=== PATIENT | female | born 1965 | race Caucasian/White ===

== ENCOUNTER 2016-09-18 14:51 | Emergency (ER) | payer SELFPAY ==
[2016-09-18] MEDS ORDERED: CLINDAMYCIN HCL 150 MG CAPSULE PO ONE (15:58)
[2016-09-18] MEDS ORDERED: IBUPROFEN 800 MG TABLET PO ONE (15:58)
[2016-09-18] MEDS ORDERED: ONDANSETRON 4 MG TAB.RAPDIS PO ONE (15:59)
--- NOTE | 2016-09-18 16:01 | ER Document Report ---
ED Medical Screen (RME) - General Chief Complaint: Toothache Stated Complaint: TOOTH PAIN Time seen by provider: 15:57 Mode of Arrival: Ambulatory Information source: Patient Notes: 51-year-old female complaining of dental abscess since yesterday. She does not want any procedure done and she just wants antibiotic and something for pain. There is a palpable abscess adjacent to her left lower decayed bicuspid. I have greeted and performed a rapid initial assessment of this patient. A comprehensive ED assessment, evaluation of the patient, analysis of test results , and completion of the medical decision making process will be conducted by additional ED providers. - Related Data Allergies/Adverse Reactions: Macrolide Antibiotics Allergy (Verified 09/18/16 15:54) morphine Allergy (Verified 09/18/16 15:54) Penicillins Allergy (Verified 09/18/16 15:58) Sulfa (Sulfonamide Antibiotics) Allergy (Verified 09/18/16 15:54) Past Medical History Past Surgical History: Reports: Hx Tubal Ligation - Immunizations Hx Diphtheria, Pertussis, Tetanus Vaccination: No Physical Exam - Vital signs Vitals: Temp Pulse Resp BP Pulse Ox 99.8 F 110 H 18 144/85 H 95 09/18/16 15:17 09/18/16 15:17 09/18/16 15:17 09/18/16 15:17 09/18/16 15:17 Course - Vital Signs Vital signs: Temp Pulse Resp BP Pulse Ox 99.8 F 110 H 18 144/85 H 95 09/18/16 15:17 09/18/16 15:17 09/18/16 15:17 09/18/16 15:17 09/18/16 15:17
[2016-09-18 18:01] VITALS: BP 145/83
--- NOTE | 2016-09-18 18:02 | ER Document Report ---
HPI - HPI Patient complains to provider of: dental infection Onset: Yesterday Onset/Duration: Gradual Quality of pain: Achy Pain Level: 4 Context: Patient complains of dental abscess that started to become painful yesterday. Patient reports subjective fevers at home. Patient reports left lower jaw swelling today. Associated Symptoms: Fever - Subjective, Other - dental pain Exacerbated by: Denies Relieved by: Denies Similar symptoms previously: Yes Recently seen / treated by doctor: No - ROS ROS below otherwise negative: Yes Systems Reviewed and Negative: Yes All other systems reviewed and negative - CONSTITUTIONAL Constitutional: REPORTS: Fever - EENT Notes: Dental infection - NEURO Neurology: DENIES: Headache - GASTROINTESTINAL Gastrointestinal: DENIES: Nausea, Patient vomiting - MUSCULOSKELETAL Musculoskeletal: DENIES: Back Pain, Neck Pain - DERM Skin Color: Normal Skin Problems: None Past Medical History - General Information source: Patient - Social History Smoking Status: Current Every Day Smoker Chew tobacco use (# tins/day): No Frequency of alcohol use: None Drug Abuse: None Occupation: none Lives with: Family Family History: Reviewed & Not Pertinent Patient has suicidal ideation: No Patient has homicidal ideation: No - Medical History Medical History: Negative Renal/ Medical History: Denies: Hx Peritoneal Dialysis Past Surgical History: Reports: Hx Tubal Ligation - Immunizations Hx Diphtheria, Pertussis, Tetanus Vaccination: No Vertical Provider Document - CONSTITUTIONAL Agree With Documented VS: Yes Exam Limitations: No Limitations General Appearance: WD/WN, No Apparent Distress - INFECTION CONTROL TRAVEL OUTSIDE OF THE [place] IN LAST 30 DAYS: No - HEENT HEENT: Atraumatic, Normocephalic. negative: Pharyngeal Exudate, Pharyngeal Tenderness Mouth Diagram: 1 - Dental decay, tenderness, neighbor in gingiva tender and indurated, no fluctuance, no drainable abscess, no trismus, no sublingual or submental swelling - NECK Neck: Normal Inspection, Supple - RESPIRATORY Respiratory: Breath Sounds Normal, No Respiratory Distress O2 Sat by Pulse Oximetry: 95 - MUSCULOSKELETAL/EXTREMETIES Musculoskeletal/Extremeties: MAEW - NEURO Level of Consciousness: Awake, Alert, Appropriate - DERM Integumentary: Warm, Dry, No Rash Course - Vital Signs Vital signs: Temp Pulse Resp BP Pulse Ox 99.8 F 110 H 18 144/85 H 95 09/18/16 15:17 09/18/16 15:17 09/18/16 15:17 09/18/16 15:17 09/18/16 15:17 Discharge - Discharge Clinical Impression: Infected dental caries Condition: Stable Disposition: HOME, SELF-CARE Instructions: Clindamycin ([facility]), Toothache ([facility]), Dental Infection or Abscess ( [facility]), Dentist Additional Instructions: Return immediately for any new or worsening symptoms Followup with your primary care provider, call tomorrow to make a followup appointment Your blood pressure was elevated today, recheck with a primary doctor to have this evaluated in 1-2 days. Follow up with a dental care provider, call for an appointment tomorrow Prescriptions: Clindamycin HCl [Cleocin 300 mg Capsule] 300 mg PO TID #21 capsule Naproxen [Naprosyn 250 Nmg Tablet] 1 tab PO BID #14 tablet Referrals: [facility] [Provider Group] - Follow up tomorrow [facility] [Provider Group] - Follow up tomorrow
== END 2016-09-18 18:15 | disposition home or self-care (01) ==
LOC: ER 14:51
DX: K04.7 Periapical abscess without sinus (principal); K02.9 Dental caries, unspecified; R50.9 Fever, unspecified; F17.200 Nicotine dependence, unspecified, uncomplicated
CPT/HCPCS: 99282; S0119

== ENCOUNTER 2017-11-26 08:47 | Emergency (ER) | payer SELFPAY ==
[2017-11-26 09:14] VITALS: BP 137/73
[2017-11-26] MEDS ORDERED: ASPIRIN 81 MG TABLET, CHEWABLE PO ONE (09:21)
--- NOTE | 2017-11-26 09:23 | ER Document Report ---
ED Medical Screen (RME) - General Chief Complaint: Chest Pain > 30 Stated Complaint: CHEST PAIN Time Seen by Provider: 11/26/17 09:17 Notes: RAPID MEDICAL EVALUATION DISCLOSURE I have seen this patient as part of a Rapid Medical Evaluation and, if applicable, placed any initially appropriate orders. The patient will be seen and fully evaluated, including a full history and physical exam, by a provider ( in Main ED or Fast Track) when a room becomes available. 52-year-old female here with complaints of left-sided chest pain radiating up to the left shoulder, left jaw, left neck ongoing for the past 2 days. She reports that the symptoms have been intermittent. They are worse with her anxiety and with "thinking about the stress in life". Her family made her come in. The patient is rambling and therefore I am unable to ascertain whether she is having diaphoresis lightheadedness nausea vomiting with the chest pain since she does not answer these questions and continues talking about other things. EXAM CTAB RRR TRAVEL OUTSIDE OF THE [place] IN LAST 30 DAYS: No - Related Data Allergies/Adverse Reactions: Macrolide Antibiotics Allergy (Verified 11/26/17 08:48) morphine Allergy (Verified 11/26/17 08:48) Penicillins Allergy (Verified 11/26/17 08:48) Sulfa (Sulfonamide Antibiotics) Allergy (Verified 11/26/17 08:48) mycins Allergy (Uncoded 11/26/17 09:13) Past Medical History - Social History Frequency of alcohol use: None Drug Abuse: None Renal/ Medical History: Denies: Hx Peritoneal Dialysis Past Surgical History: Reports: Hx Tubal Ligation - Immunizations Hx Diphtheria, Pertussis, Tetanus Vaccination: No Physical Exam - Vital signs Vitals: Temp Pulse Resp BP Pulse Ox 98.0 F 96 20 137/73 H 98 11/26/17 09:11 11/26/17 09:11 11/26/17 09:11 11/26/17 09:11 11/26/17 09:11 Course - Vital Signs Vital signs: Temp Pulse Resp BP Pulse Ox 98.0 F 96 20 137/73 H 98 11/26/17 09:11 11/26/17 09:11 11/26/17 09:11 11/26/17 09:11 11/26/17 09:11
[2017-11-26 09:56] LABS: ABSOLUTE EOSINOPHILS # (AUTO) 0.1 10^3/uL (0.0-0.6); ABSOLUTE LYMPHOCYTES (AUTO) 1.8 10^3/uL (0.5-4.7); ABSOLUTE MONOCYTES (AUTO) 0.4 10^3/uL (0.1-1.4); ABSOLUTE NEUT (AUTO) 5.1 10^3/uL (1.7-8.2); BASOPHILS % (AUTO) 0.6 % (0-2); EOSINOPHILS % (AUTO) 1.5 % (0-6); HEMATOCRIT 41.9 % (36.0-47.0); HEMOGLOBIN 13.8 g/dL (12.0-15.5); LYMPHOCYTES % (AUTO) 23.8 % (13-45); MEAN CORPUSCULAR HEMOGLOBIN 26.7 pg (27.0-33.4); MEAN CORPUSCULAR VOLUME 81 fl (80-97); MONOCYTES % (AUTO) 5.3 % (3-13); PLATELET COUNT 284 10^3/uL (150-450); RED BLOOD COUNT 5.17 10^6/uL (3.72-5.28); RED CELL DISTRIBUTION WIDTH 15.8 % (11.5-14.0); SEGMENTED NEUTROPHILS % (AUTO) 68.8 % (42-78); TOTAL CELLS COUNTED % (AUTO) 100 %; WHITE BLOOD COUNT 7.4 10^3/uL (4.0-10.5)
--- NOTE | 2017-11-26 09:56 | RADIOLOGY REPORT (SQ) ---
EXAM DESCRIPTION: CHEST 2 VIEWS COMPLETED DATE/TIME: 11/26/2017 9:37 am REASON FOR STUDY: CP COMPARISON: None. EXAM PARAMETERS: NUMBER OF VIEWS: two views TECHNIQUE: Digital Frontal and Lateral radiographic views of the chest acquired. RADIATION DOSE: NA LIMITATIONS: none FINDINGS: LUNGS AND PLEURA: No opacities, masses or pneumothorax. No pleural effusion. MEDIASTINUM AND HILAR STRUCTURES: No masses or contour abnormalities. HEART AND VASCULAR STRUCTURES: Heart normal size. No evidence for failure. BONES: No acute findings. HARDWARE: None in the chest. OTHER: No other significant finding. IMPRESSION: NO ACUTE RADIOGRAPHIC FINDING IN THE CHEST. TECHNICAL DOCUMENTATION: JOB ID: [id number] [employer]- All Rights Reserved Reading location - IP/workstation name: [email or web address] [email or web address]
[2017-11-26 10:05] LABS: ANION GAP 15 (5-19); BLOOD UREA NITROGEN 7 mg/dL (7-20); CALCIUM 9.3 mg/dL (8.4-10.2); CARBON DIOXIDE 22 mmol/L (22-30); CHLORIDE 106 mmol/L (98-107); GLUCOSE 106 mg/dL (75-110); PHOSPHORUS 3.1 mg/dL (2.5-4.5); SODIUM 143.4 mmol/L (137-145)
--- NOTE | 2017-11-26 10:12 | ER Document Report ---
ED General - General Chief Complaint: Chest Pain > 30 Stated Complaint: CHEST PAIN Time Seen by Provider: 11/26/17 09:17 Notes: patient is a 52-year-old female who presents emergency department the chief complaint of chest pain that she has been having intermittently over the past 3 days. She describes the chest pain as a pressure and sharp stabbing pain on the left anterior part of her chest wall. She denies any associated nausea, vomiting, shortness of breath, dizziness patient states that this is been elicited with recent encounters with the been causing her severe stress and anxiety. Patient denies any chest pain during activity, rest rate any periods of time. She states that is probably when she is arguing with her neighbors regarding her current legal dispute between her properties. She states that she was having these issues prior to going to court this morning. She states that once she was out of the conversation and on her way to the ED she had significant improvement and relief of her symptoms. She is chest pain-free at this time. Primary care is with Shazia Proctor, is a new patient with him and will be following up with him this Sunday Patient denies any known history of hypertension, hyperlipidemia, coronary disease, previous [place] Patient never had stress test previously Patient is a current tobacco user. TRAVEL OUTSIDE OF THE [place] IN LAST 30 DAYS: No - Related Data Allergies/Adverse Reactions: Macrolide Antibiotics Allergy (Verified 11/26/17 08:48) morphine Allergy (Verified 11/26/17 08:48) Penicillins Allergy (Verified 11/26/17 08:48) Sulfa (Sulfonamide Antibiotics) Allergy (Verified 11/26/17 08:48) mycins Allergy (Uncoded 11/26/17 09:13) Past Medical History - Social History Smoking Status: Current Every Day Smoker Frequency of alcohol use: None Drug Abuse: None Family History: Reviewed & Not Pertinent Patient has suicidal ideation: No Patient has homicidal ideation: No Renal/ Medical History: Denies: Hx Peritoneal Dialysis Past Surgical History: Reports: Hx Tubal Ligation - Immunizations Hx Diphtheria, Pertussis, Tetanus Vaccination: No Review of Systems - Review of Systems Constitutional: No symptoms reported Cardiovascular: See HPI Respiratory: See HPI Gastrointestinal: No symptoms reported Musculoskeletal: No symptoms reported Skin: No symptoms reported Neurological/Psychological: No symptoms reported -: Yes All other systems reviewed and negative Physical Exam - Vital signs Vitals: Temp Pulse Resp BP Pulse Ox 98.0 F 96 20 137/73 H 98 11/26/17 09:11 11/26/17 09:11 11/26/17 09:11 11/26/17 09:11 11/26/17 09:11 - Notes Notes: PHYSICAL EXAM GENERAL: Alert, interacts well. HEAD: Normocephalic, atraumatic. EYES: Pupils equal, round, and reactive to light. Extraocular movements intact. ENT: Oral mucosa moist, tongue midline. NECK: Full range of motion. Supple. Trachea midline. LUNGS: Clear to auscultation bilaterally, no wheezes, rales, or rhonchi. No respiratory distress. HEART: Regular rate and rhythm. No murmurs, gallops, or rubs. ABDOMEN: Soft, nondistended, nontender. No guarding, rebound, or rigidity.. Bowel sounds present in all 4 quadrants. EXTREMITIES: Moves all 4 extremities spontaneously. No edema, radial and dorsalis pedis pulses 2/4 bilaterally. No cyanosis. NEUROLOGICAL: Alert and oriented x4. Normal speech. PSYCH: Normal affect, normal mood. SKIN: Warm, dry, normal turgor. No rashes or lesions noted. Course - Re-evaluation Re-evalutation: 11/26/17 10:11 Patient is very well in appearance, vitals within normal limits. She states that she feels her symptoms are related to anxiety due to stressors in her life. History is not consistent with angina. Low clinical suspicion for ACS given clinical history, exam, EKG without ST elevations or depressions, and negative initial troponin. HEART score less than or equal to 3. PE also seems unlikely given clinical history, absence of tachycardia or dyspnea. Well's score of 0. CXR without evidence of pneumothorax or pneumonia. No widened mediastinum. Aortic dissection also seems unlikely given history, symmetric pulses, CXR, and vitals. At this time will discharge with return precautions and follow-up recommendations. Verbal discharge instructions given a the bedside and opportunity for questions given. Medication warnings reviewed. Patient is in agreement with this plan and has verbalized understanding of return precautions and the need for primary care follow-up with her established appointment this week. - Vital Signs Vital signs: Temp Pulse Resp BP Pulse Ox 98.0 F 96 20 137/73 H 98 11/26/17 09:11 11/26/17 09:11 11/26/17 09:11 11/26/17 09:11 11/26/17 09:11 - Laboratory Result Diagrams: 11/26/17 09:29 11/26/17 09:29 Laboratory results interpreted by me: 11/26/17 11/26/17 09:29 09:29 MCH 26.7 L RDW 15.8 H Creatinine 0.51 L - Diagnostic Test Radiology reviewed: Image reviewed, Reports reviewed - EKG Interpretation by Me EKG shows normal: Sinus rhythm. abnormal: ST-T Waves Rate: Normal Rhythm: NSR When compared to previous EKG there are: Previous EKG unavailable Discharge - Discharge Clinical Impression: Anxiety Chest pain Qualifiers: Chest pain type: unspecified Qualified Code(s): R07.9 - Chest pain, unspecified Condition: Good Disposition: HOME, SELF-CARE Additional Instructions: You were seen today for chest pain. The exact cause of your pain is unclear. However, based on your cardiac enzyme testing, chest x-ray, and EKG it does not appear that it is from an immediately life-threatening cause at this time. Although your testing here is normal is critical that you follow-up with your primary care physician for continued evaluation of this chest pain and possible stress testing. I recommended you see your physician within the next 24-48 hours to be evaluated for consideration of a stress test. Please return to emergency department immediately if you have worsening of your chest pain, shortness of breath, vomiting, become unable to exert yourself due to pain or difficulty breathing, you pass out, or have any pain that radiates into your arms, jaw, or back. Please also return if you have any additional symptoms that are concerning to you. Referrals: YADIEL PROCTOR MD [ACTIVE STAFF] - Follow up in 3-5 days
--- NOTE | 2017-11-26 20:14 | EKG REPORT ---
SEVERITY:- ABNORMAL ECG - PROBABLE SINUS RHYTHM REC REPEAT EKG : Confirmed by: Debbie Chan 26-Nov-2017 20:13:20
== END 2017-11-26 10:45 | disposition home or self-care (01) ==
LOC: ER 08:47
DX: F41.9 Anxiety disorder, unspecified (principal); R07.89 Other chest pain; F17.200 Nicotine dependence, unspecified, uncomplicated; Z88.1 Allergy status to other antibiotic agents; Z88.5 Allergy status to narcotic agent; Z88.0 Allergy status to penicillin; Z88.2 Allergy status to sulfonamides
CPT/HCPCS: 36415; 71046; 80048; 83735; 84100; 84484; 85025; 93005; 93010; 99285

== ENCOUNTER 2018-07-29 13:18 | Emergency (ER) | payer SELFPAY ==
[2018-07-29 13:33] VITALS: BP 140/61
--- NOTE | 2018-07-29 13:59 | ER Document Report ---
ED GI/ - General Chief Complaint: Flank Pain Stated Complaint: LEFT FLANK PAIN, NAUSEA Time Seen by Provider: 07/29/18 13:48 Mode of Arrival: Ambulatory Information source: Patient, [facility] Records Notes: 53-year-old female patient complains of left flank pain for 2 days, urine frequency and dysuria. She states she had a little bit of a fever last night and took ibuprofen. There is been no nausea or vomiting. There are no URI symptoms. There is no recent strain or injury. She is under stress as she has a spouse in the hospital in [place]. TRAVEL OUTSIDE OF THE [place] IN LAST 30 DAYS: No - Related Data Allergies/Adverse Reactions: Macrolide Antibiotics Allergy (Verified 07/29/18 13:19) morphine Allergy (Verified 07/29/18 13:19) Penicillins Allergy (Verified 07/29/18 13:19) Sulfa (Sulfonamide Antibiotics) Allergy (Verified 07/29/18 13:19) mycins Allergy (Uncoded 07/29/18 13:19) Past Medical History - General Information source: Patient, [facility] Records - Social History Smoking Status: Current Every Day Smoker Cigarette use (# per day): Yes - 1 PPD Chew tobacco use (# tins/day): No Smoking Education Provided: No Frequency of alcohol use: None Drug Abuse: None Occupation: Unemployed Lives with: Family Family History: Reviewed & Not Pertinent Patient has suicidal ideation: No Patient has homicidal ideation: No - Medical History Medical History: Negative Past Surgical History: Reports: Hx Section - x3, Hx Tubal Ligation - Immunizations Hx Diphtheria, Pertussis, Tetanus Vaccination: No Review of Systems - Review of Systems Constitutional: No symptoms reported EENT: No symptoms reported Cardiovascular: No symptoms reported Respiratory: No symptoms reported Gastrointestinal: No symptoms reported Genitourinary: See HPI, Burning, Dysuria, Frequency Female Genitourinary: Last menstrual period - April 2018, Post menopausal Musculoskeletal: No symptoms reported Skin: No symptoms reported Hematologic/Lymphatic: No symptoms reported Neurological/Psychological: No symptoms reported Physical Exam - Vital signs Vitals: Temp Pulse Resp BP Pulse Ox 97.8 F 101 H 16 140/61 H 96 07/29/18 13:28 07/29/18 13:28 07/29/18 13:28 07/29/18 13:28 07/29/18 13:28 Interpretation: Normal - Notes Notes: PHYSICAL EXAMINATION: GENERAL: Well-appearing, well-nourished and in no acute distress. HEAD: Atraumatic, normocephalic. EYES: Pupils equal round and reactive to light, extraocular movements intact, sclera anicteric, conjunctiva are normal. ENT: nares patent, oropharynx clear without exudates. Moist mucous membranes. NECK: Normal range of motion, supple without lymphadenopathy LUNGS: Breath sounds clear to auscultation bilaterally and equal. No wheezes rales. Some rhonchi with coughing when patient last. HEART: Regular rate and rhythm without murmurs ABDOMEN: Soft, some suprapubic tenderness, normoactive bowel sounds. No guarding, no rebound. No masses appreciated. BACK: Right CVA and lumbar back muscle tenderness to palpation. Not really hav ing CVA percussion tenderness. No left sided muscle tenderness or percussion tenderness. EXTREMITIES: Normal range of motion, no pitting or edema. No cyanosis. NEUROLOGICAL: Cranial nerves grossly intact. Normal speech, normal gait. Normal sensory, motor, and reflex exams. PSYCH: Normal mood, normal affect. SKIN: Warm, Dry, normal turgor, no rashes or lesions noted. Course - Re-evaluation Re-evalutation: 07/29/18 15:40 The urine came back with negative leukocyte esterase, 2 WBCs, 2 RBCs, 2 epithelial cells, and 1+ bacteria. As this is not clearly a urinary tract infection, and given the patient's age, I informed her that a more comprehensive evaluation would be necessary. She states that her mother is her ride and her mother has to get home to take some medicine at 4:00. I asked her to check with her mother to see exactly what the medication was, as it may not be something that had to be taken precisely on time. The next thing I was told was that the patient was going to leave and I never was told what the medication was that her mother had to go home and take. - Vital Signs Vital signs: Temp Pulse Resp BP Pulse Ox 97.8 F 101 H 16 140/61 H 96 07/29/18 13:28 07/29/18 13:28 07/29/18 13:28 07/29/18 13:28 07/29/18 13:28 - Laboratory Laboratory results interpreted by me: 07/29/18 13:38 Urine Blood SMALL H Discharge - Discharge Clinical Impression: Right flank pain, Frequency of urination, Dysuria Condition: Stable Disposition: AGAINST MEDICAL ADVICE
[2018-07-29 14:40] LABS: APPEARANCE,URINE SLIGHTLY-CLOUDY; BILIRUBIN,URINE NEGATIVE (NEGATIVE); COLOR,URINE YELLOW; GLUCOSE, URINE NEGATIVE (NEGATIVE); KETONES,URINE NEGATIVE (NEGATIVE); LEUKOCYTE ESTERASE,URINE NEGATIVE (NEGATIVE); NITRITE,URINE NEGATIVE (NEGATIVE); PROTEIN,URINE NEGATIVE (NEGATIVE); URINE SPECIFIC GRAVITY 1.006; UROBILINOGEN,URINE NEGATIVE mg/dL (<2.0)
== END 2018-07-29 15:37 | disposition left against medical advice (07) ==
LOC: ER 13:18
DX: R30.0 Dysuria (principal); R35.0 Frequency of micturition; R10.9 Unspecified abdominal pain; R11.0 Nausea; R50.9 Fever, unspecified; F17.210 Nicotine dependence, cigarettes, uncomplicated
CPT/HCPCS: 36415; 81001; 87086; 87088; 87186; 99284

== ENCOUNTER 2019-06-25 10:11 | Emergency (ER) | payer SELFPAY ==
[2019-06-25 10:25] VITALS: BP 153/75
--- NOTE | 2019-06-25 10:55 | ER Document Report ---
HPI - HPI Time Seen by Provider: 06/25/19 10:53 Pain Level: 0 Notes: 54-year-old female patient presenting with rash to her back. Patient reports this is been there for 3 days. She denies any pain, states it is very itchy. States her has had multiple rashes lately and she think she got it from him. Denies any other symptoms to include fever, nausea, vomiting. - REPRODUCTIVE Reproductive: DENIES: : Past Medical History - General Information source: Patient - Social History Smoking Status: Current Every Day Smoker Family History: Reviewed & Not Pertinent Patient has suicidal ideation: No Patient has homicidal ideation: No - Medical History Medical History: Negative Renal/ Medical History: Denies: Hx Peritoneal Dialysis Past Surgical History: Reports: Hx Section - x3, Hx Tubal Ligation - Immunizations Hx Diphtheria, Pertussis, Tetanus Vaccination: No Vertical Provider Document - CONSTITUTIONAL Notes: PHYSICAL EXAMINATION: GENERAL: Well-appearing, well-nourished and in no acute distress. HEAD: Atraumatic, normocephalic. EYES: Pupils equal round extraocular movements intact, conjunctiva are normal. ENT: Nares patent NECK: Normal range of motion LUNGS: No respiratory distress Musculoskeletal: Normal range of motion NEUROLOGICAL: Normal speech, normal gait. PSYCH: Normal mood, normal affect. SKIN: Maculopapular rash noted to left side of patient's back just below the scapula. - INFECTION CONTROL TRAVEL OUTSIDE OF THE [place] IN LAST 30 DAYS: No Course - Re-evaluation Re-evalutation: Patient with nonspecific skin eruption over the left scapular area. This looks similar to shingles but has no pain. Will treat with steroids, pepcid and benadryl. Follow-up with PCP for dermatology referral if not improving over the next several days. Patient verbalizes understanding and agreement with this plan. - Vital Signs Vital signs: Temp Pulse Resp BP Pulse Ox 97.9 F 94 16 153/75 H 92 06/25/19 10:50 06/25/19 10:23 06/25/19 10:50 06/25/19 10:23 06/25/19 10:50 Discharge - Discharge Clinical Impression: Rash and nonspecific skin eruption Condition: Stable Disposition: HOME, SELF-CARE Additional Instructions: Please take medications as prescribed. Also take Benadryl 50 mg every 6 hours. Please follow-up with your primary care in 3 to 5 days if not improved. Prescriptions: Prednisone [Deltasone 20 mg Tablet] 3 tab PO DAILY 5 Days #15 tablet Famotidine [Pepcid 40 mg Tablet] 40 mg PO BID #10 tablet Referrals: NAYANA MOTT MD [Primary Care Provider] - Follow up as needed
== END 2019-06-25 11:14 | disposition home or self-care (01) ==
LOC: ER 10:11
DX: R21 Rash and other nonspecific skin eruption (principal); F17.200 Nicotine dependence, unspecified, uncomplicated; Z98.51 Tubal ligation status
CPT/HCPCS: 99282

== ENCOUNTER 2019-10-12 20:33 | Emergency (ER) | payer SELFPAY ==
--- NOTE | 2019-10-12 20:58 | ER Document Report ---
ED Medical Screen (RME) - General Chief Complaint: Urinary Problem Stated Complaint: POSSIBLE UTI Time Seen by Provider: 10/12/19 20:53 Primary Care Provider: NAYANA MOTT MD [Primary Care Provider] - Follow up as needed Information source: Patient Notes: Patient presents complaining of UTI for the past 2 days. Patient reports right flank pain that radiates around to right side of abdomen. Patient does report dysuria. Patient denies any fever, nausea or vomiting. I have greeted and performed a rapid initial assessment of this patient. A comprehensive ED assessment and evaluation of the patient, analysis of test results and completion of the medical decision making process will be conducted by additional ED providers. TRAVEL OUTSIDE OF THE [place] IN LAST 30 DAYS: No - Related Data Allergies/Adverse Reactions: Macrolide Antibiotics Allergy (Verified 07/29/18 13:19) morphine Allergy (Verified 07/29/18 13:19) Penicillins Allergy (Verified 07/29/18 13:19) Sulfa (Sulfonamide Antibiotics) Allergy (Verified 07/29/18 13:19) mycins Allergy (Uncoded 07/29/18 13:19) Past Medical History Renal/ Medical History: Denies: Hx Peritoneal Dialysis Past Surgical History: Reports: Hx Section - x3, Hx Tubal Ligation - Immunizations Hx Diphtheria, Pertussis, Tetanus Vaccination: No Physical Exam - Back Back: CVA tenderness - Right Doctor's Discharge - Discharge Referrals: NAYANA MOTT MD [Primary Care Provider] - Follow up as needed
[2019-10-12 22:28] LABS: ABSOLUTE BASOPHILS # (AUTO) 0.1 10^3/uL (0.0-0.2); ABSOLUTE EOSINOPHILS # (AUTO) 0.3 10^3/uL (0.0-0.6); ABSOLUTE LYMPHOCYTES (AUTO) 2.6 10^3/uL (0.5-4.7); ABSOLUTE MONOCYTES (AUTO) 0.6 10^3/uL (0.1-1.4); ABSOLUTE NEUT (AUTO) 4.9 10^3/uL (1.7-8.2); BASOPHILS % (AUTO) 0.7 % (0-2); EOSINOPHILS % (AUTO) 3.2 % (0-6); HEMATOCRIT 42.1 % (36.0-47.0); HEMOGLOBIN 14.4 g/dL (12.0-15.5); LYMPHOCYTES % (AUTO) 31.2 % (13-45); MEAN CORPUSCULAR HEMOGLOBIN 29.1 pg (27.0-33.4); MEAN CORPUSCULAR HGB CONC 34.3 g/dL (32.0-36.0); MEAN CORPUSCULAR VOLUME 85 fl (80-97); PLATELET COUNT 241 10^3/uL (150-450); RED BLOOD COUNT 4.96 10^6/uL (3.72-5.28); RED CELL DISTRIBUTION WIDTH 15.3 % (11.5-14.0); SEGMENTED NEUTROPHILS % (AUTO) 57.9 % (42-78); TOTAL CELLS COUNTED % (AUTO) 100 %; WHITE BLOOD COUNT 8.4 10^3/uL (4.0-10.5)
[2019-10-12 22:36] LABS: APPEARANCE,URINE SLIGHTLY-CLOUDY; BILIRUBIN,URINE NEGATIVE (NEGATIVE); COLOR,URINE YELLOW; GLUCOSE, URINE NEGATIVE (NEGATIVE); KETONES,URINE NEGATIVE (NEGATIVE); LEUKOCYTE ESTERASE,URINE NEGATIVE (NEGATIVE); NITRITE,URINE NEGATIVE (NEGATIVE); PROTEIN,URINE NEGATIVE (NEGATIVE); URINE SPECIFIC GRAVITY 1.016; UROBILINOGEN,URINE NEGATIVE mg/dL (<2.0)
[2019-10-12 22:45] LABS: ALBUMIN 4.1 g/dL (3.5-5.0); ALKALINE PHOSPHATASE 70 U/L (38-126); ANION GAP 7 (5-19); ASPARTATE AMINO TRANSFERASE 18 U/L (14-36); BILIRUBIN,DIRECT 0.3 mg/dL (0.0-0.4); BILIRUBIN,TOTAL 0.4 mg/dL (0.2-1.3); BLOOD UREA NITROGEN 15 mg/dL (7-20); CARBON DIOXIDE 27 mmol/L (22-30); CHLORIDE 105 mmol/L (98-107); GLUCOSE 115 mg/dL (75-110); TOTAL PROTEIN 7.2 g/dL (6.3-8.2)
[2019-10-12] MEDS ORDERED: CEPHALEXIN 500 MG CAPSULE PO ONE (22:57)
--- NOTE | 2019-10-12 22:59 | ER Document Report ---
ED GI/ - General Chief Complaint: Pain With Urination Stated Complaint: POSSIBLE UTI Time Seen by Provider: 10/12/19 20:53 Primary Care Provider: NAYANA MOTT MD [Primary Care Provider] - 10/14/19 Notes: Patient is a 54-year-old female that comes emergency department for chief complaint of patient reports painful urination, frequent urination, and intermittent radiation of pain to the right flank area. She denies fever, chills, nausea, vomiting, or current pain symptoms. She denies history of kidney stones. Patient has had a tubal ligation and a . Patient denies any medical history otherwise. TRAVEL OUTSIDE OF THE [place] IN LAST 30 DAYS: No - Related Data Allergies/Adverse Reactions: Macrolide Antibiotics Allergy (Verified 07/29/18 13:19) morphine Allergy (Verified 07/29/18 13:19) Penicillins Allergy (Verified 07/29/18 13:19) Sulfa (Sulfonamide Antibiotics) Allergy (Verified 07/29/18 13:19) mycins Allergy (Uncoded 07/29/18 13:19) Past Medical History - General Information source: Patient - Social History Smoking Status: Current Every Day Smoker Chew tobacco use (# tins/day): No Frequency of alcohol use: None Drug Abuse: None Lives with: Family Family History: Reviewed & Not Pertinent Patient has suicidal ideation: No Patient has homicidal ideation: No Renal/ Medical History: Denies: Hx Peritoneal Dialysis Past Surgical History: Reports: Hx Section - x3, Hx Tubal Ligation - Immunizations Hx Diphtheria, Pertussis, Tetanus Vaccination: Yes Review of Systems - Review of Systems Constitutional: No symptoms reported EENT: No symptoms reported Cardiovascular: No symptoms reported Respiratory: No symptoms reported Gastrointestinal: See HPI Genitourinary: See HPI Female Genitourinary: No symptoms reported Musculoskeletal: No symptoms reported Skin: No symptoms reported Hematologic/Lymphatic: No symptoms reported Neurological/Psychological: No symptoms reported Physical Exam - Vital signs Vitals: Temp Pulse Resp BP Pulse Ox 98.0 F 81 20 127/60 H 95 10/12/19 21:00 10/12/19 21:00 10/12/19 21:00 10/12/19 21:00 10/12/19 21:00 - Notes Notes: GENERAL: Alert, interacts well. No acute distress. HEAD: Normocephalic, atraumatic. EYES: Pupils equal, round, and reactive to light. Extraocular movements intact. ENT: Oral mucosa moist, tongue midline. Oropharynx unremarkable. Airway patent. LUNGS: Clear to auscultation bilaterally, no wheezes, rales, or rhonchi. No res piratory distress. HEART: Regular rate and rhythm. No murmur ABDOMEN: Soft, non-tender. Non-distended. Bowel sounds present in all 4 quadrants. No guarding or rigidity. GENITOURINARY: Deferred EXTREMITIES: Moves all 4 extremities spontaneously. No edema, normal radial and dorsalis pedis pulses bilaterally. No cyanosis. BACK: no cervical, thoracic, lumbar midline tenderness. No saddle anesthesia, normal distal neurovascular exam. Moves all extremities in full range of motion. NEUROLOGICAL: Alert and oriented x3. Normal speech. Cranial nerves II through XII grossly intact. PSYCH: Normal affect, normal mood. SKIN: Warm, dry, normal turgor. No rashes or lesions noted. Course - Re-evaluation Re-evalutation: Patient is talkative and well-appearing. She does not have a overt CVA tenderness, her abdomen is soft and benign, her vital signs are unremarkable. Her urine only has 1 white blood cell, no red blood cells, her laboratory work- up is unremarkable. Because of patient reporting flank pain radiating to her back along with lower abdominal pain I recommended CT of the abdomen and pelvis, especially in the light that she has never had a kidney stone and I am searching for the cause of her pain. Patient declined, she states she would like to be treated for her urinary symptoms, she states she has a primary care follow-up tomorrow, she states she will return if she worsens. I did discuss return precautions in detail. Stable and well-appearing at time of discharge. - Vital Signs Vital signs: Temp Pulse Resp BP Pulse Ox 97.9 F 77 17 143/88 H 97 10/12/19 23:00 10/12/19 23:00 10/12/19 23:00 10/12/19 23:00 10/12/19 23:00 - Laboratory Result Diagrams: 10/12/19 22:05 10/12/19 22:05 Laboratory results interpreted by me: 10/12/19 10/12/19 10/12/19 22:05 22:05 22:05 RDW 15.3 H Glucose 115 H Urine Ascorbic Acid 20 H Discharge - Discharge Clinical Impression: Dysuria, Right flank pain Condition: Stable Disposition: HOME, SELF-CARE Additional Instructions: Your laboratory work-up does not show any concerning findings. We are treating you for your symptoms of painful urination, however you declined a CAT scan at this time to investigate the cause of your right flank pain. It is possible you are passing a kidney stone. Follow-up with primary care closely, take the antibiotics as prescribed, return for any concerning symptoms including severe worsening pain, vomiting, spiking fever, or any other concerning symptoms. Prescriptions: Cephalexin Monohydrate [Keflex 500 mg Capsule] 500 mg PO BID 7 Days #14 capsule Referrals: NAYANA MOTT MD [Primary Care Provider] - 10/14/19
[2019-10-12 23:15] VITALS: BP 143/88
== END 2019-10-12 23:20 | disposition home or self-care (01) ==
LOC: ER 20:33
DX: R30.0 Dysuria (principal); R10.9 Unspecified abdominal pain; R10.30 Lower abdominal pain, unspecified; R35.0 Frequency of micturition; F17.200 Nicotine dependence, unspecified, uncomplicated; Z98.51 Tubal ligation status; Z88.1 Allergy status to other antibiotic agents; Z88.6 Allergy status to analgesic agent; Z88.5 Allergy status to narcotic agent; Z88.0 Allergy status to penicillin; Z88.2 Allergy status to sulfonamides
CPT/HCPCS: 36415; 80053; 81001; 85025; 87086; 99283

== ENCOUNTER 2019-12-20 11:09 | Emergency (ER) | payer SELFPAY ==
[2019-12-20 11:20] VITALS: BP 154/90
--- NOTE | 2019-12-20 11:37 | ER Document Report ---
ED Skin Rash/Insect Bite/Abscs - General Chief Complaint: Skin Problem Stated Complaint: SKIN PROBLEM Primary Care Provider: NAYANA MOTT MD [Primary Care Provider] - Follow up as needed TRAVEL OUTSIDE OF THE [place] IN LAST 30 DAYS: No - HPI Patient complains to provider of: Skin rash/lesion - This 54-year-old female presents to the emergency room today stating that she was bitten by her own dog approximately a week and a half ago. She does have a red tender area to the right lateral antecubital area she has no fluctuance to the area Onset/Duration: Sudden Quality of pain: Achy, Other - peuritic in nature Skin Character: No: Abscess Identify cause: Yes Medication exposure: denies: Antibiotic - Related Data Allergies/Adverse Reactions: codeine Allergy (Verified 12/20/19 11:23) Macrolide Antibiotics Allergy (Verified 07/29/18 13:19) morphine Allergy (Verified 07/29/18 13:19) Penicillins Allergy (Verified 07/29/18 13:19) Sulfa (Sulfonamide Antibiotics) Allergy (Verified 07/29/18 13:19) mycins Allergy (Uncoded 07/29/18 13:19) Past Medical History - General Information source: Patient - Social History Smoking Status: Current Every Day Smoker Cigarette use (# per day): Yes - 20 Chew tobacco use (# tins/day): No Smoking Education Provided: No Frequency of alcohol use: None Drug Abuse: None Family History: Reviewed & Not Pertinent Renal/ Medical History: Denies: Hx Peritoneal Dialysis Past Surgical History: Reports: Hx Section - x3, Hx Tubal Ligation - Immunizations Hx Diphtheria, Pertussis, Tetanus Vaccination: Yes Review of Systems - Review of Systems Constitutional: No symptoms reported EENT: No symptoms reported Cardiovascular: No symptoms reported Respiratory: No symptoms reported Gastrointestinal: No symptoms reported Genitourinary: No symptoms reported Musculoskeletal: No symptoms reported Skin: No symptoms reported, Rash - She does have red rash to approximately a 4 cm in circumference area to the right lateral aspect of her antecubital space. She has no fluctuance no tenderness no signs of abscess no redness no streaking no excessive warmth no excessive tenderness to the area. Hematologic/Lymphatic: No symptoms reported Neurological/Psychological: No symptoms reported Physical Exam - Vital signs Vitals: Temp Pulse Resp BP Pulse Ox 98.3 F 101 H 16 154/90 H 97 12/20/19 11:19 12/20/19 11:19 12/20/19 11:19 12/20/19 11:19 12/20/19 11:19 Interpretation: Normal - General General appearance: Appears well, Alert - HEENT Head: Normocephalic, Atraumatic Eyes: Normal Pupils: PERRL - Respiratory Respiratory status: No respiratory distress Chest status: Nontender Breath sounds: Normal Chest palpation: Normal - Cardiovascular Rhythm: Regular Heart sounds: Normal auscultation Murmur: No - Abdominal Inspection: Normal Distension: No distension Bowel sounds: Normal Tenderness: Nontender Organomegaly: No organomegaly - Back Back: Normal, Nontender - Extremities General upper extremity: Normal inspection, Nontender, Normal color, Normal ROM, Normal temperature General lower extremity: Normal inspection, Nontender, Normal color, Normal ROM, Normal temperature, Normal weight bearing. No: Neeraj's sign Arm: Other - She does have red rash to approximately a 4 cm in circumference area to the right lateral aspect of her antecubital space. She has no fluctuance no tenderness no signs of abscess no redness no streaking no excessive warmth no excessive tenderness to the area. - Neurological Neuro grossly intact: Yes Cognition: Normal Orientation: AAOx4 Anderson Coma Scale Eye Opening: Spontaneous [place] Coma Scale Verbal: Oriented Anderson Coma Scale Motor: Obeys Commands Anderson Coma Scale Total: 15 Speech: Normal Motor strength normal: LUE, RUE, LLE, RLE Sensory: Normal - Psychological Associated symptoms: Normal affect, Normal mood - Skin Skin Temperature: Warm Skin Moisture: Dry Skin Color: Normal Course - Vital Signs Vital signs: Temp Pulse Resp BP Pulse Ox 98.3 F 101 H 16 154/90 H 97 12/20/19 11:19 12/20/19 11:19 12/20/19 11:19 12/20/19 11:19 12/20/19 11:19 Discharge - Discharge Clinical Impression: Cellulitis Qualifiers: Site of cellulitis: extremity Site of cellulitis of extremity: upper extremity Laterality: right Qualified Code(s): L03.113 - Cellulitis of right upper limb Disposition: HOME, SELF-CARE Instructions: Cellulitis ([facility]) Additional Instructions: Warm compresses to the affected area 4-5 times a day. Increase fluid intake rest. Must follow-up with PMD in 2 to 3 days for recheck. Return here for any change worsening condition. In a recheck if unable to obtain follow-up with your PMD. Prescriptions: Sulfamethoxazole/Trimethoprim [Septra-Ds 800-160 mg Tablet] 1 tab PO Q12 #20 tablet Referrals: NAYANA MOTT MD [Primary Care Provider] - Follow up as needed
[2019-12-20] MEDS ORDERED: TETANUS/DIPHTHERIA TOX-ADULT 0.5 ML SYR (>=7YO) IM ONE (11:41)
== END 2019-12-20 12:05 | disposition home or self-care (01) ==
LOC: ER 11:09
DX: L03.113 Cellulitis of right upper limb (principal); R21 Rash and other nonspecific skin eruption; Z88.8 Allergy status to other drugs, medicaments and biological substances; Z88.0 Allergy status to penicillin; Z88.2 Allergy status to sulfonamides; F17.210 Nicotine dependence, cigarettes, uncomplicated
CPT/HCPCS: 90471; 90714; 99283

== ENCOUNTER 2019-12-23 16:07 | Emergency (ER) | payer SELFPAY ==
[2019-12-23 16:15] VITALS: BP 147/78
== END 2019-12-24 06:41 | disposition left against medical advice (07) ==
LOC: ER 16:07
DX: Z53.21 Procedure and treatment not carried out due to patient leaving prior to being seen by health care provider (principal)

== ENCOUNTER 2019-12-24 12:07 | Emergency (ER) | payer SELFPAY ==
[2019-12-24 12:27] VITALS: BP 145/94
--- NOTE | 2019-12-24 12:56 | ER Document Report ---
HPI - HPI Patient complains to provider of: Wound recheck Time Seen by Provider: 12/24/19 12:44 Onset: Last week Onset/Duration: Worse Quality of pain: No pain, Sharp Severity: None Pain Level: Denies Associated Symptoms: Other - Recheck dog bite Exacerbated by: Denies Relieved by: Denies Similar symptoms previously: Yes Recently seen / treated by doctor: Yes - ROS ROS below otherwise negative: Yes - CONSTITUTIONAL Constitutional: DENIES: Fever, Chills - EENT EENT: DENIES: Sore Throat, Ear Pain, Nasal Drainage-Clear, Nasal Drainage- Purulent, Congestion, Eye problems - NEURO Neurology: DENIES: Headache, Weakness, Vision blurred, Dizzinesss / Vertigo - CARDIOVASCULAR Cardiovascular: DENIES: Chest pain - RESPIRATORY Respiratory: DENIES: Trouble Breathing, Coughing - GASTROINTESTINAL Gastrointestinal: DENIES: Abdominal Pain, Nausea, Patient vomiting, Diarrhea, Constipation, Black / Bloody Stools - URINARY Urinary: DENIES: Dysuria, Urgency, Frequency - REPRODUCTIVE Reproductive: DENIES: :, Postmenopausal, Abnormal bleeding / discharge - MUSCULOSKELETAL Musculoskeletal: DENIES: Extremity pain, Back Pain, Neck Pain, Swelling - DERM Skin Color: Normal, Other - Healing laceration to the right arm from a dog bite last week started on antibiotics she is still taking her antibiotics.Around the site where she has been using multiple Band-Aids. I have told her to leave it open and leave the Band-Aids off Past Medical History - General Information source: Patient - Social History Smoking Status: Current Every Day Smoker - Half pack a day Cigarette use (# per day): Yes Chew tobacco use (# tins/day): No Smoking Education Provided: Yes - 4 minutes Drug Abuse: None Lives with: Family Family History: Reviewed & Not Pertinent Patient has homicidal ideation: No - Past Medical History Cardiac Medical History: Reports: None Pulmonary Medical History: Reports: None EENT Medical History: Reports: None Neurological Medical History: Reports: None Endocrine Medical History: Reports: None Renal/ Medical History: Reports: None Malignancy Medical History: Reports: None GI Medical History: Reports: None Musculoskeletal Medical History: Reports Hx Musculoskeletal Trauma Skin Medical History: Reports None Psychiatric Medical History: Reports: None Traumatic Medical History: Reports: Hx Fractures - Arm Infectious Medical History: Reports: None Past Surgical History: Reports: Hx Section - x3, Hx Tubal Ligation - Immunizations Hx Diphtheria, Pertussis, Tetanus Vaccination: Yes Vertical Provider Document - CONSTITUTIONAL Agree With Documented VS: Yes Exam Limitations: No Limitations General Appearance: WD/WN, No Apparent Distress, Mild Distress - INFECTION CONTROL TRAVEL OUTSIDE OF THE [place] IN LAST 30 DAYS: No - HEENT HEENT: Atraumatic, Normal ENT Exam, PERRLA - NECK Neck: Normal Inspection, Supple, Thyroid Normal - RESPIRATORY Respiratory: Breath Sounds Normal, No Respiratory Distress - CARDIOVASCULAR Cardiovascular: Regular Rate, Regular Rhythm, No Murmur - GI/ABDOMEN Gastrointestinal: Abdomen Soft, Abdomen Non-Tender - BACK Back: Normal Inspection - MUSCULOSKELETAL/EXTREMETIES Musculoskeletal/Extremeties: MAEW, FROM, Non-Tender - NEURO Level of Consciousness: Awake, Alert, Appropriate Motor/Sensory: No Motor Deficit, No Sensory Deficit Deep Tendon Reflexes: 2+ - DERM Integumentary: Warm, Dry Notes: Recheck well granulated well approximated injury some redness to the area no drainage no inflammation no signs of infection. She does have some rash from where she has been using Neosporin instead of bacitracin multiple Band-Aids. We have instructed her to please clean dial soap and use bacitracin to the area please. Course - Vital Signs Vital signs: Temp Pulse Resp BP Pulse Ox 98.2 F 87 20 145/94 H 96 12/24/19 12:44 12/24/19 12:26 12/24/19 12:26 12/24/19 12:26 12/24/19 12:26 Discharge - Discharge Clinical Impression: Encounter for wound re-check Condition: Stable Disposition: HOME, SELF-CARE Additional Instructions: You were seen today for wound recheck to the dog bite to your right leg You are taking your antibiotics as prescribed. Soap Cleansing Gently wash the wound daily using a mild soap (like Ivory, Phisoderm, Neutrogena). Use warm water, rubbing gently until all debris, ooze, and crusting have been washed from the wound. Allow to dry briefly (about 10 minutes) after cleaning. Repeat this cleansing at least three times a day for the first two days and then once or twice a day. Antibiotic Ointment Protection Your wounds are such that dressing them is not practical or optional. After cleansing, you should apply a thin coating of antibiotic ointment (Bacitracin, not Neosporin) to the wounds at least three times daily. This lessens infection risk, and may decrease the amount of scarring. Use a q-tip or dull butter knife, not your finger, to apply this ointment. Any debris or ooze which builds up in the ointment should be gently rubbed off with a sterile gauze pad. Harder crusting may need to be gently scrubbed off with a clean wash cloth with soap and warm water, perhaps applying a warm, wet wash cloth to the wound for ten minutes first. Development of redness, severe itching, or blistering may mean allergy to the ointment. See the doctor. FOLLOW-UP CARE: If you have been referred to a physician for follow-up care, call the physicians office for an appointment as you were instructed or within the next two days. If you experience worsening or a significant change in your symptoms, notify the physician immediately or return to the Emergency Department at any time for re-evaluation. Forms: Elevated Blood Pressure Referrals: NAYANA MOTT MD [Primary Care Provider] - Follow up as needed
== END 2019-12-24 13:00 | disposition home or self-care (01) ==
LOC: ER 12:07
DX: S41.151D Open bite of right upper arm, subsequent encounter (principal); W54.0XXD Bitten by dog, subsequent encounter; R21 Rash and other nonspecific skin eruption; F17.210 Nicotine dependence, cigarettes, uncomplicated; Z71.6 Tobacco abuse counseling
CPT/HCPCS: 99281; 99406

== ENCOUNTER → 2020-03-30 | Outpatient (CLI) | payer SELFPAY ==
[2020-03-30 09:42] LABS: ABSOLUTE BASOPHILS # (AUTO) 0.1 10^3/uL (0.0-0.2); ABSOLUTE EOSINOPHILS # (AUTO) 0.2 10^3/uL (0.0-0.6); ABSOLUTE LYMPHOCYTES (AUTO) 2.1 10^3/uL (0.5-4.7); ABSOLUTE MONOCYTES (AUTO) 0.4 10^3/uL (0.1-1.4); ABSOLUTE NEUT (AUTO) 4.3 10^3/uL (1.7-8.2); BASOPHILS % (AUTO) 0.7 % (0-2); EOSINOPHILS % (AUTO) 2.4 % (0-6); HEMATOCRIT 42.5 % (36.0-47.0); HEMOGLOBIN 14.6 g/dL (12.0-15.5); LYMPHOCYTES % (AUTO) 29.7 % (13-45); MEAN CORPUSCULAR HEMOGLOBIN 29.1 pg (27.0-33.4); MEAN CORPUSCULAR HGB CONC 34.3 g/dL (32.0-36.0); MEAN CORPUSCULAR VOLUME 85 fl (80-97); MONOCYTES % (AUTO) 5.9 % (3-13); PLATELET COUNT 238 10^3/uL (150-450); RED BLOOD COUNT 5.02 10^6/uL (3.72-5.28); RED CELL DISTRIBUTION WIDTH 15.1 % (11.5-14.0); SEGMENTED NEUTROPHILS % (AUTO) 61.3 % (42-78); TOTAL CELLS COUNTED % (AUTO) 100 %; WHITE BLOOD COUNT 7.1 10^3/uL (4.0-10.5)
[2020-03-30 09:49] LABS: APPEARANCE,URINE SLIGHTLY-CLOUDY; BILIRUBIN,URINE NEGATIVE (NEGATIVE); COLOR,URINE STRAW; GLUCOSE, URINE NEGATIVE (NEGATIVE); KETONES,URINE NEGATIVE (NEGATIVE); LEUKOCYTE ESTERASE,URINE NEGATIVE (NEGATIVE); NITRITE,URINE NEGATIVE (NEGATIVE); PROTEIN,URINE NEGATIVE (NEGATIVE); URINE SPECIFIC GRAVITY 1.002; UROBILINOGEN,URINE NEGATIVE mg/dL (<2.0)
[2020-03-30 10:07] LABS: ALBUMIN 4.5 g/dL (3.5-5.0); ALKALINE PHOSPHATASE 66 U/L (38-126); ANION GAP 10 (5-19); ASPARTATE AMINO TRANSFERASE 21 U/L (14-36); BILIRUBIN,DIRECT 0.3 mg/dL (0.0-0.4); BILIRUBIN,TOTAL 0.5 mg/dL (0.2-1.3); BLOOD UREA NITROGEN 14 mg/dL (7-20); CALCIUM 9.9 mg/dL (8.4-10.2); CARBON DIOXIDE 29 mmol/L (22-30); CHLORIDE 102 mmol/L (98-107); GLUCOSE 111 mg/dL (75-110); POTASSIUM 4.6 mmol/L (3.6-5.0); TOTAL PROTEIN 7.2 g/dL (6.3-8.2)
== END ==
LOC: CCC 08:07
PROVIDERS: ATTEND Family Medicine
DX: Z00.00 Encounter for general adult medical examination without abnormal findings (principal)
CPT/HCPCS: 36415; 80053; 81001; 83036; 85025

== ENCOUNTER → 2020-06-08 | Outpatient (CLI) | payer SELFPAY ==
[2020-06-08 13:58] VITALS: BP 171/80
--- NOTE | 2020-06-08 13:58 | ER [facility] ASSESSMENT REPORT ---
Intake - In the Last 14 days Have you traveled outside [place]?: No Have you been in close contact with someone CONFIRMED: No Worked in Healthcare?: No - Symptoms Subjective Fever([place] feverish): No Chills: No Muscule Aches: No Runny Nose: No Sore Throat: No Cough (New or worsening chronic cough): No Shortness of breath: No Nausea or Vomiting: No Headache: No Abdominal Pain: No Diarrhea(3 or more loose stools in last 24 hours): No - Do you have any of the following Chronic lung disease: Asthma or emphysema or COPD: No Cystic Fibrosis: No Diabetes: No High Blood Pressure: No Cardiovascular Disease: No Chronic Kidney Disease: No Chronic Liver Disease: No Chronic blood disorder like Sickle Cell Disease: No Weak immune system due to disease or medication: No Neurologic condition that limits movement: No Developmental delay - Moderate to Severe: No Recent (within past 2 weeks) or current : No Morbid Obesity (>100 pounds over ideal weight): No - Objective Temperature: 98.4 F Pulse Rate: 109 Respiratory Rate: 20 Blood Pressure: 171/80 O2 Sat by Pulse Oximetry: 92 Objective: Given above, testing performed: If Testing Performed: Test Specimen Type Sent to General - General Information source: Patient Notes: Patient presents to the [facility] for screening for the coronavirus. Patient denies any symptoms. Patient states she just wants to be certain she has not been exposed. - Related Data Allergies/Adverse Reactions: codeine Allergy (Verified 12/24/19 12:44) Macrolide Antibiotics Allergy (Verified 12/24/19 12:44) morphine Allergy (Verified 12/24/19 12:44) Penicillins Allergy (Verified 12/24/19 12:44) Sulfa (Sulfonamide Antibiotics) Allergy (Verified 12/24/19 12:44) mycins Allergy (Uncoded 12/24/19 12:44) Past Medical History - General Information source: Patient - Social History Smoking Status: Former Smoker Family History: Reviewed & Not Pertinent - Medical History Medical History: Negative Renal/ Medical History: Denies: Hx Peritoneal Dialysis Musculoskeletal Medical History: Reports Hx Musculoskeletal Trauma Traumatic Medical History: Reports: Hx Fractures - Arm Past Surgical History: Reports: Hx Section - x3, Hx Tubal Ligation Physical Exam - Notes Notes: The patient was evaluated during the global Covid 19 pandemic, and that diagnosis was suspected/considered upon their initial presentation. Their evaluation, treatment and testing was consistent with current guidelines for patients who present with complaints or symptoms that may be related to Covid 19. Full physical exam could not be performed due to covid 19 isolation protocols. Constitutional: Nontoxic appearance, no acute distress Eyes: Nonicteric, extraocular movements intact, sclera clear ENT: Posterior pharynx without exudates Cardiovascular: Heart rate and rhythm regular, no JVD Respiratory: Breath sounds clear bilaterally, nonlabored breathing, no use of accessory muscles, no tachypnea Gastrointestinal: Abdomen not distended Muculoskeletal: Moves all extremities well Skin: Normal color Neuro: Awake alert oriented, normal speech Psych: Normal mood and affect Diagnostic Results Laboratory Results: Patient presents with concern about possible exposure for Covid 19. Patient does not have emergency worrying symptoms such as difficulty breathing, shortness of breath, chest pain, pressure, confusion or cyanosis. Patient appears suitable for discharge as they are not of an advanced age, do not have any chronic medical conditions such as diabetes, CAD, immune deficiency, chronic lung disease or chronic kidney disease. Patient is nontoxic in appearance. Good return precautions have been discussed with patient, patient verbalized understanding and is agreeable with discharge plan of care at this time. Patient Education/Counseling Counseling/Education: Patient was provided with discharge information including: As a person under investigation for Covid 19, the [place] department of Health and Human Services, division of public health advises you to adhere to the following guidance until your test results are reported to you. If your test result is positive, you will receive additional information from your provider and your local health department at that time. Remain at home until you are cleared by the health provider or public health authorities. Keep a log of visitors to your home, notify any visitors to your home of your isolation status. If you plan to move to a new address or leave the county, notify the local health department in your County. Call your doctor or seek care if you have an urgent medical need. Before seeking medical care, call ahead to get instructions from the provider before arriving at the medical office clinic or hospital. Notify them that you are being tested for the virus that causes Covid 19 so that arrangements can be made, as necessary, to prevent transmission to others in the healthcare setting. Next, notify the local health department in your county. If a medical emergency arises and you need to call 911, inform the first responders that you are being tested for the virus that causes Covid 19. Next, notify the local health department in your county. [facility] Discharge - Discharge Clinical Impression: Encounter for screening laboratory testing for COVID-19 virus in asymptomatic patient Condition: Stable Disposition: Home; Selfcare
== END ==
LOC: RDC 13:28
PROVIDERS: ATTEND Nurse Practitioner Family
DX: Z20.828 Contact with and (suspected) exposure to other viral communicable diseases (principal); Z88.0 Allergy status to penicillin; Z88.1 Allergy status to other antibiotic agents; Z88.6 Allergy status to analgesic agent; Z87.891 Personal history of nicotine dependence
CPT/HCPCS: 87635; 99201; 99211; C9803